=== PATIENT | female | born 2000 | race African-American/Black ===

== ENCOUNTER 2025-07-27 13:59 | Emergency (ER) | payer SELFPAY ==
[~2025-07-27] VITALS: Ht 172.7 cm; Wt 104.0 kg
[2025-07-27 14:01] VITALS: PULSE 110; RESP 16; O2SAT 98
[2025-07-27 14:08] VITALS: BP 139/77; TEMP 36.7; O2SAT 99
[2025-07-27 16:48] LABS: BASOPHILS % 0.5 % (0.0-2.0); EOSINOPHILS % 0.5 % (0.0-5.0); HEMATOCRIT. 35.8 % (36.0-48.0); HEMOGLOBIN. 11.7 g/dL (12.0-16.0); LYMPHOCYTES % 31.3 % (20.0-50.0); MEAN PLATELET VOLUME 9.3 fl (7.4-10.4); MONOCYTES % 6.1 % (2.0-8.0); NEUTROPHILS % 61.6 % (40.0-76.0); PLATELET 225 x1000/uL (130-400); RED BLOOD CELL COUNT 4.92 mill/uL (4.2-5.4); RED CELL DISTRIBUTION WIDTH 15.9 % (11.6-14.6)
[2025-07-27 17:07] LABS: HCG SCREEN NEGATIVE
== END 2025-07-27 18:20 | disposition home or self-care (01) ==
LOC: ER 13:59
DX: N92.6 Irregular menstruation, unspecified (principal); F84.0 Autistic disorder
CPT/HCPCS: 36415; 84703; 85025; 99283

== ENCOUNTER 2025-07-27 17:45 | Emergency (ER) | payer SELFPAY ==
[2025-07-27 17:47] VITALS: PULSE 79; RESP 16; O2SAT 100
== END 2025-07-27 18:47 | disposition left against medical advice (07) ==
LOC: ER 17:45
DX: H92.01 Otalgia, right ear (principal)
CPT/HCPCS: 99281